=== PATIENT | male | born 1945 | race Caucasian/White ===

== ENCOUNTER 2022-12-13 07:03 | Inpatient (IN) | payer OTHER ==
[~2022-12-13] VITALS: Ht 177.8 cm; Wt 72.6 kg
[2022-12-13 07:05] VITALS: BP 163/101
--- NOTE | 2022-12-13 07:50 | NUR ---
Pt bib ems durin previous shift. Pt was a reported missing person since yesterday. Found by EMS. Pt is confused a/o x 2 (alert to person, place). Pt is compliant. Vss, no ss of acute distress, breathing equal and unlabored, speech clear, on monitor and then taken to ct. has seen pt.
--- NOTE | 2022-12-13 08:19 | NUR ---
Covid and blood labs labeled and walked to lab.
[2022-12-13 08:39] LABS: BASOPHILS % (AUTO) 0.2 % (0.0-2.0); HEMATOCRIT 45.7 % (36-52); HEMOGLOBIN 15.8 g/dL (12.0-18.0); LYMPHOCYTES # (AUTO) 0.7 K/uL (2.0-11.5); LYMPHOCYTES % (AUTO) 4.9 % (20.5-51.1); MEAN CORPUSCULAR HEMOGLOBIN 30 pg (27-31); MEAN CORPUSCULAR HGB CONC 35 g/dL (33-37); MEAN CORPUSCULAR VOLUME 85.9 fL (80-94); MONOCYTES # (AUTO) 1.1 K/uL (0.8-1.0); NEUTROPHILS # (AUTO) 13.2 K/uL (1.8-7.7); NEUTROPHILS % (AUTO) 87.9 % (42.2-75.2); PLATELET COUNT (AUTO) 207 K/uL (140-450); RED BLOOD CELL COUNT(AUTO) 5.32 MIL/uL (4.20-6.10); RED CELL DISTRIBUTION WIDTH 14.5 % (11.6-13.7)
[2022-12-13 08:57] LABS: ALBUMIN 4.3 g/dL (3.4-5.0); ANION GAP 21.3 (8-16); ASPARTATE AMINOTRANSFERASE 59 U/L (15-37); CHLORIDE 102 mmol/L (98-107); GLUCOSE 130 mg/dL (74-106); POTASSIUM 4.3 mmol/L (3.5-5.1); SODIUM SERUM 142 mmol/L (136-145); UREA NITROGEN, BLOOD 23 mg/dL (7-18)
--- NOTE | 2022-12-13 09:37 | NUR ---
spoke with Andie (daughter) daughter confirmed pt has hx of HTN, take Losartan Potassium 50mg tab po daily, but states bottle is full so he may be incompliant. states he has recently started slurring words, prompted pcp visit, states pcp only notified her that he has unmanaged HTN.
--- NOTE | 2022-12-13 09:51 | NUR ---
Pt was able to stand to use urinal. UA labeleld and sent to lab. Lactic obtained and sent to lab as well.
[2022-12-13] MEDS ORDERED: NACL 0.9% 1,000 ML IV ONE (10:05)
[2022-12-13 10:30] LABS: APPEARANCE,URINE CLEAR (CLEAR); BILIRUBIN,URINE 1+ (NEGATIVE); BLOOD, URINE 3+ (NEGATIVE); COLOR,URINE DARK YELLOW (YELLOW); LEUKOCYTE ESTERASE ,URINE NEGATIVE (NEGATIVE); NITRITE, URINE NEGATIVE (NEGATIVE); UGLUCOSE NEGATIVE (NEGATIVE)
[2022-12-13] MEDS ORDERED: LOSA100T1 PO (10:43)
--- NOTE | 2022-12-13 10:43 | NUR ---
OLE (DAUGHTER): [phone] KAMAR (DAUGHTER): [phone]
[2022-12-13 10:47] LABS: OTHER CASTS, URINE None Seen /LPF (None Seen)
[2022-12-13] MEDS ORDERED: ZOLPIDEM 5 MG TAB PO PRN (12:55)
[2022-12-13] MEDS ORDERED: NACL 0.9% 1,500 ML IV ONE (12:55)
[2022-12-13] MEDS ORDERED: MAG SULF 2000 MG/WATER PREMIX 50 ML IV PRN (12:55)
[2022-12-13] MEDS ORDERED: LORazepam 1 MG TAB PO PRN (12:55)
[2022-12-13] MEDS ORDERED: ACETAMINOPHEN 325 MG TAB PO PRN (12:55)
[2022-12-13] MEDS ORDERED: ONDANSETRON 4 MG/2 ML VIAL IVP PRN (12:55)
[2022-12-13] MEDS ORDERED: METOCLOPRAMIDE 10 MG/2 ML INJ VIAL IVP PRN (12:55)
[2022-12-13] MEDS ORDERED: MORPHINE SULFATE 4 MG/ML SYR IVP PRN (12:55)
[2022-12-13] MEDS ORDERED: HYDROcodone/APAP 5/325 MG 1 TAB TAB PO PRN (12:55)
[2022-12-13] MEDS ORDERED: cefTRIAXone 1,000 MG VIAL ONE (13:20)
[2022-12-13] MEDS: NACL 0.9% 1,000 ML IV SCH ×2 (13:56→21:39)
[2022-12-13 14:42] LABS: MAGNESIUM 1.8 mg/dL (1.8-2.4); PHOSPHORUS 3.7 mg/dL (2.5-4.9)
--- NOTE | 2022-12-13 19:30 | NUR ---
ASSUMED CARE OF PT AT THIS TIME. PT UPDATED ON POC WITH FULL VERBAL UNDERSTANDING. AWAITING BED ASSIGNMENT. VSS. PT DENIES ANY PAIN OR NEEDS AT THIS TIME.
--- NOTE | 2022-12-14 00:11 | NUR ---
PT PULLED OUT IV, PT HAS CLOTHES OFF, AND STOOL. PT CLEANED, NEW GOWN, LINEN, WARM BLANKETS PROVIDED, ATIVAN GIVEN. WILL RESTART IV.
--- NOTE | 2022-12-14 02:30 | NUR ---
PT PULLED ANOTHER IV LINE OUT AT THIS TIME. PT WAS MEDICATED AND CONTINUES TO REMAIN CONFUSED.
--- NOTE | 2022-12-14 03:23 | NUR ---
PT APPEARS TO BE SLEEPING AT THIS TIME. NO S/S OF DISTRESS NOTED.
[2022-12-14] MEDS ORDERED: HALOPERIDOL IM 5 MG/ML VIAL IM ONE (04:05)
--- NOTE | 2022-12-14 04:05 | NUR ---
PT UP, WITH ALL CLOTHES OFF TRYING TO FIND HIS PANTS. REDIRECTED PT BACK TO BED. ONE TIME ORDER OF HALDOL ORDERED BY DR. KENNY WILL FOLLOW THROUGH WITH ORDER.
--- NOTE | 2022-12-14 05:27 | NUR ---
PT APPEARS TO BE SLEEPING AT THIS TIME. NO S/S OF DISTRESS NOTED. VSS
--- NOTE | 2022-12-14 06:30 | NUR ---
PT RESTING, NEW IV STARTED AT THIS TIME. VSS
[2022-12-14] MEDS: NACL 0.9% 1,000 ML IV SCH (06:54)
--- NOTE | 2022-12-14 07:19 | NUR ---
REPORT TO FREDRICK ODOM
--- NOTE | 2022-12-14 07:47 | NUR ---
Report given to LEI Bravo. Pt in stable condition. Vss, no ss of acute distress, breathing equal and unlabored.
[2022-12-14 08:00] VITALS: BP 136/84
[2022-12-14 08:24] LABS: BASOPHILS % (AUTO) 0.2 % (0.0-2.0); EOSINOPHILS # (AUTO) 0.1 K/uL (0-0.4); EOSINOPHILS % (AUTO) 1.1 % (0.0-4.0); HEMATOCRIT 38.8 % (36-52); HEMOGLOBIN 13.2 g/dL (12.0-18.0); LYMPHOCYTES # (AUTO) 1.4 K/uL (2.0-11.5); LYMPHOCYTES % (AUTO) 16.1 % (20.5-51.1); MEAN CORPUSCULAR HEMOGLOBIN 30 pg (27-31); MEAN CORPUSCULAR HGB CONC 34 g/dL (33-37); MEAN CORPUSCULAR VOLUME 86.8 fL (80-94); MONOCYTES # (AUTO) 0.6 K/uL (0.8-1.0); MONOCYTES % (AUTO) 6.5 % (1.7-9.3); NEUTROPHILS # (AUTO) 6.8 K/uL (1.8-7.7); NEUTROPHILS % (AUTO) 76.1 % (42.2-75.2); PLATELET COUNT (AUTO) 125 K/uL (140-450); RED BLOOD CELL COUNT(AUTO) 4.47 MIL/uL (4.20-6.10); RED CELL DISTRIBUTION WIDTH 14.3 % (11.6-13.7); WHITE BLOOD COUNT (AUTO) 8.9 K/uL (4.8-10.8)
--- NOTE | 2022-12-14 08:34 | NUR ---
RECEIVE ER NURSE REPORT THAT PATIENT COME FROM STREET MISSING PERSON FROM HOME FOR ALOC 2/2 DEHYDRATION, ACUTE ETOH INTOXICATION; DIAGNOSIS AMS, TOD, ELEVATED CK WITH HX OF HTN, ON BLOOD THINNER. PATIENT IS FULL CODE W/ NKA. PER REPORT THAT PATIENT IS AMBULATORY W/ ASSIST BUT NURSE DID NOT SEE PATIENT AMBULATE, MAYBE HUNG OVER FROM HALDOL. ALERT X 1 OR 2, MED/SURG, ON ROOM AIR, REGULAR DIET. PIV AT R. FOREARM SALINE LOCK. PATIENT IS ADMIT OBSERVATION STATUS. WILL CONTINUE TO MONITOR
[2022-12-14 08:46] LABS: CARBON DIOXIDE 22.7 mmol/L (21-32); CHLORIDE 110 mmol/L (98-107); CREATININE 1.5 mg/dL (0.6-1.3); GLUCOSE 84 mg/dL (74-106); POTASSIUM 3.7 mmol/L (3.5-5.1); SODIUM SERUM 142 mmol/L (136-145); UREA NITROGEN, BLOOD 24 mg/dL (7-18)
[2022-12-14] MEDS: SODIUM BICARBONATE 8.4% 100 MEQ in NACL 0.45% 1,000 ML IV SCH ×2 (09:25→20:25)
--- NOTE | 2022-12-14 09:29 | NUR ---
PATIENT HAS BEEN SCREENED AND CATEGORIZED LOW NUTRITION RISK. PATIENT WILL BE SEEN WITHIN 7 DAYS OF ADMISSION. 12/20/22 REVIEWED BY ORIANA HENNING RD
[2022-12-14] MEDS: DOCUSATE SODIUM 100 MG GELCAP PO SCH (10:22)
[2022-12-14 16:00] VITALS: BP 149/81
--- NOTE | 2022-12-14 19:41 | NUR ---
ENDORSE PATIENT TO PM SHIFT NURSE IN STABLE CONDITION; PIV INFUSING SODIUM BICARBONATE AT 100ML/HR VIA R. FOREARM 20G IV SITE.
--- NOTE | 2022-12-14 20:00 | NUR ---
PATIENT AWAKE , ALERT WATCHING TV. ON ROOM AIR. NO S/S OF RESPIRATORY DISTRESS. BREATHING REGULAR NON LABORED. NO COMPLAINTS OF PAIN AT THIS TIME. ALL SAFETY PRECAUTIONS ARE IN PLACE. CALL LIGHT WITHIN REACH.
--- NOTE | 2022-12-14 21:23 | NUR ---
ADMINISTERED SCHEDULED DUE MEDICATION.
[2022-12-15] VITALS: BP 138/81
[2022-12-15] MEDS: SODIUM BICARBONATE 8.4% 100 MEQ in NACL 0.45% 1,000 ML IV SCH ×2 (00:05→18:20)
[2022-12-15 04:00] VITALS: BP 150/83
[2022-12-15 05:56] LABS: BASOPHILS # (AUTO) 0.1 K/uL (0.00-0.22); BASOPHILS % (AUTO) 0.7 % (0.0-2.0); EOSINOPHILS # (AUTO) 0.1 K/uL (0-0.4); EOSINOPHILS % (AUTO) 1.6 % (0.0-4.0); HEMATOCRIT 39.4 % (36-52); HEMOGLOBIN 13.5 g/dL (12.0-18.0); LYMPHOCYTES # (AUTO) 1.4 K/uL (2.0-11.5); LYMPHOCYTES % (AUTO) 17.9 % (20.5-51.1); MEAN CORPUSCULAR HEMOGLOBIN 30 pg (27-31); MEAN CORPUSCULAR HGB CONC 34 g/dL (33-37); MEAN CORPUSCULAR VOLUME 86.5 fL (80-94); MONOCYTES # (AUTO) 0.7 K/uL (0.8-1.0); MONOCYTES % (AUTO) 9.4 % (1.7-9.3); NEUTROPHILS # (AUTO) 5.6 K/uL (1.8-7.7); NEUTROPHILS % (AUTO) 70.4 % (42.2-75.2); PLATELET COUNT (AUTO) 125 K/uL (140-450); RED BLOOD CELL COUNT(AUTO) 4.55 MIL/uL (4.20-6.10); RED CELL DISTRIBUTION WIDTH 14.2 % (11.6-13.7)
[2022-12-15 06:34] LABS: ANION GAP 12.7 (8-16); CARBON DIOXIDE 25.8 mmol/L (21-32); CHLORIDE 104 mmol/L (98-107); CREATININE 1.1 mg/dL (0.6-1.3); GLUCOSE 79 mg/dL (74-106); POTASSIUM 3.5 mmol/L (3.5-5.1); SODIUM SERUM 139 mmol/L (136-145); UREA NITROGEN, BLOOD 17 mg/dL (7-18)
--- NOTE | 2022-12-15 07:00 | NUR ---
ALL NEEDS MET THROUGHOUT THE SHIFT. PATIENT STABLE. WILL ENDORSE TO DAY SHIFT NURSE.
[2022-12-15 08:00] VITALS: BP 166/83
[2022-12-15] MEDS: DOCUSATE SODIUM 100 MG GELCAP PO SCH (10:58)
[2022-12-15] MEDS ORDERED: MAG SULF 2000 MG/WATER PREMIX 50 ML IV SCH (11:00)
[2022-12-15] MEDS ORDERED: SODIUM PHOS / POTASSIUM PHOS 1 PKT PDR PO SCH (11:00)
--- NOTE | 2022-12-15 15:33 | NUR ---
DC PLANNING SW ATTEMPTED TO MEET WITH PT AT BEDSIDE TO COMPLETE ASSESSMENT HOWEVER, PT STRUGGLED TO RECALL HOME ADDRESS. SW REQUESTED PERMISSION TO CALL PTS DAUGHTEROLE TO GATHER COLLATERAL INFORMATION, PT PROVIDED PERMISSION. SW OUTREACHED TO PTS OLE OCONNOR, TO GATHER COLLATERAL INFORMATION. OLE REPORTS PT RESIDES IN A SINGLE STORY HOME WITH HER AND HER DAUGHTER, AT THE ADDRESS LISTED ON FILE. PT IDENTIFIED HER SELF AND KAMAR CERDA, DAUGHTER, PTS EMERGENCY CONTACTS. OLE REPORTS KAMAR, IS PTS DPOA. PT IS REPORTED TO MEET WITH PCP DR RAJAN NEEDED, LAST VISIT; NOV 13. PT IS REPORTED TO BE NON COMPLIANT WITH MEDICATION HE IS REPORTED TO BE " STUBBORN". OLE DENIES BARRIERS ACCESSING NEEDED MEDICATIONS AND REPORTS RECEIVING MEDICATION FROM [employer] [place] IN [place], WHEN NEEDED. PT IS REPORTED TO BE INDEPENDENT IN ALL ACTIVITIES NO USE OF DME REPORTED. PT IS REPORTS TO WALK DAILY AND OFTEN WALKS DAILY TO GET MILKSHAKES/ICE CREAM. OEL REPORTS THAT HIS BEING MISSING AND CONFUSED IS NEW FOR PT. OLE DENIES MH/ARCOS HX. PT DOES NOT HAVE HX OF HH, SNF PLACEMENT OR DIALYSIS TX. OLE REPORTS UNKNOWN HX OF DIABETES AND REPORTS SHE ASKED NURSES TO CHECK FOR DIABETES. OLE REPORTS DC PLAN IS FOR PT TO RETURN HOME WITH FAMILY PROVIDING TRANSPORTATION, WHEN STABLE. Addendum: 12/15/22 at 1538 by Wilder LEONE Amended: Links added.
[2022-12-15 16:00] VITALS: BP 159/81
--- NOTE | 2022-12-15 19:47 | NUR ---
ENDORSE PATIENT IN STABLE CONDITION TO PM SHIFT NURSE; PIV INFUSING SODIUM BICARBONATE AT 100ML/HR VIA R. FOREARM
[2022-12-16 04:00] VITALS: BP 158/69
[2022-12-16] MEDS: SODIUM BICARBONATE 8.4% 100 MEQ in NACL 0.45% 1,000 ML IV SCH (05:25)
[2022-12-16 06:04] LABS: ANION GAP 13.3 (8-16); BASOPHILS % (AUTO) 0.5 % (0.0-2.0); CARBON DIOXIDE 27.2 mmol/L (21-32); CHLORIDE 102 mmol/L (98-107); EOSINOPHILS # (AUTO) 0.1 K/uL (0-0.4); EOSINOPHILS % (AUTO) 1.2 % (0.0-4.0); GLUCOSE 81 mg/dL (74-106); HEMATOCRIT 38.7 % (36-52); HEMOGLOBIN 13.5 g/dL (12.0-18.0); LYMPHOCYTES # (AUTO) 1.6 K/uL (2.0-11.5); LYMPHOCYTES % (AUTO) 22.2 % (20.5-51.1); MEAN CORPUSCULAR HEMOGLOBIN 30 pg (27-31); MEAN CORPUSCULAR HGB CONC 35 g/dL (33-37); MEAN CORPUSCULAR VOLUME 84.9 fL (80-94); MONOCYTES # (AUTO) 0.7 K/uL (0.8-1.0); MONOCYTES % (AUTO) 10.5 % (1.7-9.3); NEUTROPHILS # (AUTO) 4.7 K/uL (1.8-7.7); NEUTROPHILS % (AUTO) 65.6 % (42.2-75.2); PLATELET COUNT (AUTO) 133 K/uL (140-450); POTASSIUM 3.5 mmol/L (3.5-5.1); RED BLOOD CELL COUNT(AUTO) 4.56 MIL/uL (4.20-6.10); RED CELL DISTRIBUTION WIDTH 13.8 % (11.6-13.7); SODIUM SERUM 139 mmol/L (136-145); UREA NITROGEN, BLOOD 12 mg/dL (7-18); WHITE BLOOD COUNT (AUTO) 7.1 K/uL (4.8-10.8)
[2022-12-16 06:44] LABS: CKMB RELATIVE INDEX 0.3 (0.0-2.5); CREATINE KINASE MB 2.6 ng/mL (0-3.6)
[2022-12-16 08:00] VITALS: BP 171/83
[2022-12-16] MEDS ORDERED: CLONIDINE HYDROCHLORIDE 0.1 MG TAB PO PRN (08:45)
[2022-12-16] MEDS: DOCUSATE SODIUM 100 MG GELCAP PO SCH (09:09)
[2022-12-16 10:40] VITALS: BP 118/72
[2022-12-16 12:43] VITALS: BP 120/69
--- NOTE | 2022-12-16 13:24 | NUR ---
DISCHARGE INSTRUCTIONS AND PLAN OF CARE DISCUSSED WITH PATIENT AND PATIENT'S DAUGHTER. PATIENT AND DAUGHTER VERBALIZED UNDERSTANDING. IV DISCONTINUED. PATIENT DISCHARGED HOME VIA WHEELCHAIR WITH DAUGHTER. Estefany WHITMAN RN.
== END 2022-12-16 13:25 | disposition home or self-care (01) | DRG 682 ==
LOC: MED 07:03 → MTU 12:54 → OBSVTOIN 12-15 17:25
PROVIDERS: ADMIT Internal Medicine; ATTEND Internal Medicine
DX: N17.9 Acute kidney failure, unspecified (principal); G93.41 Metabolic encephalopathy; M62.82 Rhabdomyolysis; E87.20 Acidosis, unspecified; E86.0 Dehydration; F10.129 Alcohol abuse with intoxication, unspecified; Y90.9 Presence of alcohol in blood, level not specified; D72.829 Elevated white blood cell count, unspecified; R74.01 Elevation of levels of liver transaminase levels; Z20.822 Contact with and (suspected) exposure to COVID-19; I10 Essential (primary) hypertension
CPT/HCPCS: 96365; 96372; 99285; G0378; 36415; 70450; 71045; 72125; 76770; 80048; 80053; 81001; 82550; 82553; 83605; 83735; 84100; 84484; 85025; 87081; 87086; 93005; G0482; J0696; J1630; J1644; J2765; J3475; J3490; Q0092

== ENCOUNTER 2022-12-18 06:30 | Emergency (ER) | payer OTHER ==
[~2022-12-18] VITALS: Ht 172.7 cm; Wt 74.8 kg
[2022-12-18 06:30] VITALS: BP 174/106
[~2022-12-18 06:30] MED LIST: LOSA100T1 PO
--- NOTE | 2022-12-18 06:34 | NUR ---
PT BIBA BLS. TAKEN TO BED 9
--- NOTE | 2022-12-18 06:48 | NUR ---
Patient being evaluated by physician at bedside.
--- NOTE | 2022-12-18 06:51 | NUR ---
Patient resting in bed, A/Ox3, chest rise and fall symmetrical, no c/o pain or s/s of distress, patient on monitor.
[2022-12-18] MEDS ORDERED: GABA100C PO (06:55)
[2022-12-18] MEDS ORDERED: KETOROLAC 30 MG/ML VIAL IM ONE (07:00)
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
--- NOTE | 2022-12-18 07:27 | NUR ---
XR AT BEDSIDE. HARDNESS INSPECTOR AT BEDSIDE FOR BLOOD DRAW
--- NOTE | 2022-12-18 07:29 | NUR ---
Change of shift given to AM shift nurse Immanuel ODOM. AM shift nurse Immanuel RN verbalized understanding of report, no further questions.
[2022-12-18] MEDS ORDERED: lisinopriL 20 MG TAB PO ONE (07:35)
[2022-12-18 07:43] LABS: BASOPHILS % (AUTO) 0.6 % (0.0-2.0); EOSINOPHILS # (AUTO) 0.2 K/uL (0-0.4); EOSINOPHILS % (AUTO) 2.1 % (0.0-4.0); HEMATOCRIT 41.9 % (36-52); HEMOGLOBIN 14.4 g/dL (12.0-18.0); LYMPHOCYTES % (AUTO) 12.7 % (20.5-51.1); MEAN CORPUSCULAR HEMOGLOBIN 30 pg (27-31); MEAN CORPUSCULAR HGB CONC 34 g/dL (33-37); MEAN CORPUSCULAR VOLUME 85.9 fL (80-94); MONOCYTES # (AUTO) 0.9 K/uL (0.8-1.0); MONOCYTES % (AUTO) 11.3 % (1.7-9.3); NEUTROPHILS % (AUTO) 73.3 % (42.2-75.2); PLATELET COUNT (AUTO) 161 K/uL (140-450); RED BLOOD CELL COUNT(AUTO) 4.88 MIL/uL (4.20-6.10); RED CELL DISTRIBUTION WIDTH 13.9 % (11.6-13.7); WHITE BLOOD COUNT (AUTO) 8.1 K/uL (4.8-10.8)
[2022-12-18 08:01] LABS: ALBUMIN 3.3 g/dL (3.4-5.0); ANION GAP 15.1 (8-16); ASPARTATE AMINOTRANSFERASE 25 U/L (15-37); CARBON DIOXIDE 25.4 mmol/L (21-32); CHLORIDE 103 mmol/L (98-107); CREATININE 1.1 mg/dL (0.6-1.3); GLUCOSE 96 mg/dL (74-106); POTASSIUM 3.5 mmol/L (3.5-5.1); SODIUM SERUM 140 mmol/L (136-145); TOTAL BILIRUBIN 0.7 mg/dL (0.0-1.0); UREA NITROGEN, BLOOD 12 mg/dL (7-18)
--- NOTE | 2022-12-18 08:08 | NUR ---
URINE COLLECTED AND SENT TO LAB
[2022-12-18] MEDS ORDERED: ZYL300 PO (08:32)
[2022-12-18] MEDS ORDERED: INDO-323 PO (08:32)
--- NOTE | 2022-12-18 08:48 | NUR ---
SHUKRI WAP APPLIED TO L KNEE. + CMS
[2022-12-18 09:22] LABS: APPEARANCE,URINE CLEAR (CLEAR); BILIRUBIN,URINE 1+ (NEGATIVE); BLOOD, URINE TRACE-I (NEGATIVE); COLOR,URINE YELLOW (YELLOW); LEUKOCYTE ESTERASE ,URINE NEGATIVE (NEGATIVE); NITRITE, URINE NEGATIVE (NEGATIVE); UGLUCOSE NEGATIVE (NEGATIVE)
--- NOTE | 2022-12-18 09:26 | NUR ---
patient unable to ambulate at this time. ermd aware. patient daughter notified of patient's condition. per daughter, unable to take care of patient at home as she is working most of the time and the patient is unable to perform adl. per kari, will consult social science professor.
[2022-12-18 09:42] LABS: RBC,URINE 0-5 /HPF (0-5); WBC,URINE 0-5 /HPF (0-5)
--- NOTE | 2022-12-18 10:10 | NUR ---
CONTACT INFO FOR OLE, DAUGHTER: [phone]
--- NOTE | 2022-12-18 10:19 | NUR ---
HELMET COVERER MADE AWARE THAT DAUGHTER OLE WOULD LIKE TO SPEAK
--- NOTE | 2022-12-18 10:37 | NUR ---
PT IS CALM AND SLEEPING AT THIS TIME.
--- NOTE | 2022-12-18 10:58 | NUR ---
DC PLANNING DC PLANNING 10:58 AM: DOM OUTREACHED TO PTS DAUGHTER OLE, . OLE REPORTS SHE WOULD LIKE FATHER PLACED AT SNF HE IS CURRENTLY NOT AT HIS BASELINE. PT IS REPORTED TO BE INDEPENDENT IN ALL ACTIVITIES AND DENIES USE OF DME. DOM EXPLAINED TO OLE, THAT PATIENT REQUIRES A PHYSICAL THERAPY EVALUATION. EXPLAINED TO OLE HOW PLACEMENT IS THEN PROCEEDED, OLE VERBALIZED UNDERSTANDING. Addendum: 12/19/22 at 1026 by Wilder LEONE DOM OUTREACHED TO PTS EMERGENCY CONTACTS OLE, AND KAMAR, TO NO AVAIL. MESSAGE WAS LEFT REQUESTING A RETURN PHONE CALL NURSES HAVE ATTEMPTED TO REACH SEVERAL TIMES PT IS DC. DOM OUTREACHED TO [facility] AND SPOKE W/ AAYUSH DOWNS DISPATCHER AND REQUESTED A WELLNESS CHECK ON FAMILY THEY HAVE NOT COME TO NURSE UNIT MANAGER PT, OR, RETURNED SEVERAL CALLS LEFT BY HOSPITAL STAFF. YARELI REPORTS OFFICERS WILL TO DISPATCHED TO MAKE CONTACT WITH FAMILY. Addendum: 12/19/22 at 1138 by Wilder LEONE FIELDED CALL FROM OFFICER MANOJ WHO REPORTS MAKING CONTACT WITH PTS DAUGHTER. OFFICE MANOJ REPORTS PTS DAUGHTER WAS ON THE PHONE WITH PTS MD TO HAVE PT ADMITTED TO [facility]. OFFICER PROVIDED PTS PCP, DR ANTHONY RAJAN, NUMBER PT DAUGHTER DAUGHTER OLE ASKED TO PROVIDED TO [facility] Addendum: 12/19/22 at 1221 by Wilder Garcia CALLED AND SPOKE TO PTS DAUGHTER, OLE. EXPLAINED TO OLE THAT PT IS DC'D FROM [facility]. HOWEVER, INSURANCE APPROVED HOME HEALTH PHYSICAL THERAPY AND 8 HRS A DAY OF COMFORT KEEPERS, FOR TWO WEEKS. OLE UNHAPPY WITH SERVICES APPROVED BY INSURANCE. OLE REPORTS SPEAKING TO PTS PCP, DR. ANTHONY RAJAN WHO ADVISED HER NOT TO NURSE UNIT MANAGER PT, IT WOULD MAKE HER RESPONSIBLE FOR PT. EXPLAINED TO OLE PT IS NOT ADMITTED TO HOSPITAL AND THAT SHE AND SISTER CELI (PTS DPOA) ARE RESPONSIBLE FOR PT. EXPLAINED TO OLE BASED ON PHYSICAL THERAPY EVALUATION AND RX, PT CURRENTLY DOES NOT MEET CRITERIA FOR SNF CARE. OFFERED OLE ASSISTED LIVING RESOURCES WELL PRIVATE CAREGIVER SUPPORT RESOURCES THAT HAVE OUT OF POCKET COST. OLE DECLINED AND IS REQUESTING PT TO BE PLACED AT [facility], AGAIN EXPLAINED TO OLE PT REQUIRES A SKILLED NEED. OLE NOT IN AGREEMENT.
--- NOTE | 2022-12-18 11:10 | NUR ---
RECEIVED CALL FROM CASE MANAGEMENT THAT A PHYSICAL THERAPY CONSULT IS REQUIRED. ORDER PLACED. ATTEMPTED TO CONTACT PT, NO ANSWER. CONTACTED ETL ANALYST DEVELOPER STEPHANY SOMERS IS 2PM. DR RUIZ AWARE
--- NOTE | 2022-12-18 15:45 | NUR ---
PENDING PT EVAL. PER HOUSE SUP, WILL FOLLOW UP WITH PT ON ETA
--- NOTE | 2022-12-18 16:00 | NUR ---
PT AT BEDSIDE. PATIENT AMBULATING WITH WALKER AT THIS TIME.
--- NOTE | 2022-12-18 18:03 | NUR ---
PER NURSING LAND SURVEYOR ASSISTANT LIZBET, PT CAN BE DC AT THIS TIME PER PHYSICAL THERAPIST CLEARANCE. PER PHYSICAL THERAPIST, PT WOULD REQUIRE HOME HEALTH. PER PAT, PT CLEARED TO BE DC AT THIS TIME AND PROCESS VALIDATION ENGINEER WILL FOLLOW UP TOMMORROW. PENDING NOTES FROM PHYSICAL THERAPIST AND A WALKER TO BE DISPENSED TO PATIENT.
--- NOTE | 2022-12-18 18:22 | NUR ---
SPOKE WITH PT'S DAUGHTER OLE OF PATIENT'S DC. EXPLAINED TO MARIPOSA THAT PT HAS BEEN CLEARED FOR DC WITH WALKER PER PHYSICAL THERAPIST AND TO FOLLOW UP WITH HOME HEALTH VISITS, WHOM DEAN [facility]YS WILL FOLLOW UP WITH MARIPOSA TOMORROW MORNING. 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 PER MARIPOSA, ETA FOR ULTRASONIC SEAMING MACHINE OPERATOR AFTER MIDNIGHT TODAY. WALKER PLACED AT BEDSIDE. PATIENT VERBALIZED UNDERSTANDING OF USING A WALKER.
--- NOTE | 2022-12-18 19:10 | NUR ---
SPOKE WITH SON-IN-LAW. PER SON-IN-LAW, THERE IS CONCERNS FOR PATIENT NOT BEING ABLE TO BE PROPERLY TAKEN CARE OF AT HOME AFTER DC AND NOW REQUESTING IF PATIENT CAN BE KEPT IN THE ER AT THIS TIME. ADVISED OLE, THE DAUGHTER, AND SON-IN-LAW THAT PATIENT HAS BEEN MEDICALLY CLEARED AND HAS NO FURTHER INDICATIONS FOR BEING HOSPITALIZED AT THIS TIME. NOTIFIED PATIENT'S FAMILY THAT PATIENT HAS ALSO BEEN CLEARED BY PHYSICAL THERAPY THAT HE IS AMBULATORY WITH WALKER WITH STEADY GAIT. ALSO ADVISED PT'S FAMILY THAT PATIENT WILL HAVE A FOLLOW UP WITH HOME HEALTH UPON ENGRAVER FLATWARE COMMUNICATION TOMORROW MORNING ENGRAVER FLATWARE IS NOT AVAILABLE AT THIS TIME.
--- NOTE | 2022-12-18 19:15 | NUR ---
ASSUMED CARE OF LANDRY CERDA. PT WAS IN THE CHAIR WHERE HE SELF AMBULATED ACCORDING TO PT
--- NOTE | 2022-12-18 23:55 | NUR ---
ATTEMPTED TO CALL OLE SANDERSVAL TO ARRANGE FOR CREATIVE SERVICES SPECIALIST BUT NO ANSWER. LEFT MESSAGE FOR CALL BACK. PT AMBULATED INTO BED AND BED RAILS ARE UP
--- NOTE | 2022-12-19 07:55 | NUR ---
PT WAS D/C'D BUT NO ONE PICKUP. PT IS LYING ON BED SLEEPING. WILL CONTACT FAMILY AND SW TO HANDLE TODAY. NO ACUTE DISTRESS.
--- NOTE | 2022-12-19 08:08 | NUR ---
spoke with Denisha at [facility] ([phone]), report made at this time as requested per kari Licona. report #: [id number] and faxed to [phone]) given by Denisha.
--- NOTE | 2022-12-19 10:28 | NUR ---
SPOKE TO CASE MANAGEMENT, THEY ARE UNABLE TO CONTACT DAUGHTER. PD WAS CALLED TO DO A WELLNESS CHECK,
--- NOTE | 2022-12-19 12:46 | NUR ---
PER NICHOLE, NON MORSE INTERCEPT TECHNICIAN, PATIENT HAS HOME HEALTH SCHEDULED AND IS CLEAR FOR DISCHARGE.
--- NOTE | 2022-12-19 13:21 | NUR ---
SPOKE WITH DAUGHTER OLE, STATES SHE IS REFUSING TO TAKE HIM HOME AT THIS TIME, STATES SHE IS UNABLE TO TAKE CARE OF HIM AT HOME DUE TO HER JOB. STATES "HE NEEDS TO BE ADMITTED AND TAKEN TO A SNF." TRANSFERRED TO CASE MANAGEMENT FOR F/U AT THIS TIME.
--- NOTE | 2022-12-19 14:24 | NUR ---
FAMILY CAME TO PICKUP PT. PT WAS W/C'D OUT OF ED BY JUANJOSE NOVAK IN STABLE CONDITION.
[2022-12-19 14:25] VITALS: BP 164/56
== END 2022-12-19 14:25 | disposition home or self-care (01) ==
LOC: MED 06:30
DX: M10.061 Idiopathic gout, right knee (principal); M10.062 Idiopathic gout, left knee; M25.512 Pain in left shoulder; I10 Essential (primary) hypertension; Z79.899 Other long term (current) drug therapy
CPT/HCPCS: 36415; 73030; 73562; 80053; 81001; 82550; 85025; 96372; 97116; 97163; 99285; J1885; Q0092